=== PATIENT | male | born 1990 | race Asian ===

== ENCOUNTER 2021-12-06 00:15 | Inpatient (IN) ==
[2021-12-06] MEDS ORDERED: GI COCKTAIL ED USE PO ONE (00:27)
[2021-12-06 00:48] LABS: Appearance Urine Clear (Clear); Bilirubin Urine Negative (Negative); Blood Urine Negative (Negative); Color Urine Yellow; Glucose Urine UA Negative (Negative); Ketones Urine Negative (Negative); Leukocyte Esterase Urine Negative (Negative); Nitrite Urine Negative (Negative); Protein Urine Negative (Negative); Specific Gravity Urine 1.014 (1.000-1.030); Urobilinogen Urine Negative (Negative)
--- NOTE | 2021-12-06 00:51 | Emergency Department Note ---
History of Present Illness General Chief complaint: Abdominal Pain Stated complaint: SEVERE STOMACH PAIN LASTING 9HRS Time Seen by Provider: 12/06/21 00:20 History of Present Illness Maximum Pain Intensity: 5 This 31-year-old healthy male who was been underneath more stress lately presen ts to the ER complaining of epigastric discomfort today Location: Epigastric Quality: Discomfort Severity: Moderate Duration: Today Timing: Today Context: Patient was concerned and came in Modifying factors: better with rest; worse with palpation Patient denies chest pain, dyspnea, fevers, vomiting, diarrhea, flank pain, urinary symptoms. No history of similar symptoms in the past. He has been underneath more stress lately. Home Medications Medication Instructions Recorded Confirmed Type lactobacillus combination no.4 3 0 mmu cells PO DAILY 12/06/21 12/06/21 History billion cell capsule (Probiotic) Allergies Allergy/AdvReac Type Severity Reaction Status Date / Time No Known Allergies Allergy Unverified 12/06/21 02:32 Past Med/Surg History Medical History No acute medical problems Surgical History No pertinent past surgical history Social History Smoking Status: Never smoker Preferred Language: Finnish Feels Safe at Home: Yes Review of Systems A total of 10 systems reviewed and were otherwise negative Physical Exam Vital Signs Vital Signs - 24 hr 12/06/21 00:18 12/06/21 00:33 12/06/21 02:07 Temperature 37.0 C Temperature Source Temporal Artery Scan Pulse Rate 82 Pulse Rate [Right Finger] 73 Respiratory Rate 18 18 Respiratory Depth Normal Blood Pressure 137/85 Blood Pressure [Right Arm] 126/76 Blood Pressure Mean 102 Blood Pressure Mean [Right Arm] 92 Blood Pressure Position [Right Arm] Sitting Pulse Oximetry 96 98 98 Oxygen Delivery Method Room Air Room Air Room Air Sepsis Recent Fever Within 48 Hours No Sepsis New/Unexplained Change in Mental Status N/A Sepsis Action Taken by Nursing No Action Required VITALS: Vitals are noted on the nurse's note and reviewed by myself. Vital signs stable. GENERAL: Pleasant gentleman ambulating without difficulty, in no acute distress, nondiaphoretic, well-developed well-nourished. SKIN: The skin was without rashes, erythema, edema, or bruising. There is no tenting of the skin. Capillary reflex less than 2 seconds. HEAD: Normocephalic atraumatic. EARS: External auditory canals clear, EYES: Pupils equal round and reactive to light and accommodation. Conjunctivae without injection, sclerae without icterus. Extraocular movements intact. NOSE: Patent, turbinates without inflammation or discharge. MOUTH: Mucous membranes moist. Pharynx without erythema or exudate. Uvula midline. Airway patent. Tongue does not deviate. NECK: Supple without nuchal rigidity. No lymphadenopathy. No thyromegaly. Cervical spine is nontender. No JVD. HEART: Regular rate and rhythm without murmurs gallops or rubs. LUNGS: Clear to auscultation bilaterally without wheezes, rales or rhonchi. No retractions or accessory muscle use. ABDOMEN: Positive bowel sounds x 4. Normal tympanic percussion. Soft, nontender, without masses or organomegaly. Wadsworth sign negative. No guarding or rebound tenderness. No CVA tenderness MUSCULOSKELETAL: No muscle atrophy, erythema, or edema noted. NEURO: Patient was alert and oriented to person place and time. Normal sensation to light and sharp touch. No focal neurological deficits. Course Administered Medications Discontinued Medications Al Hydrox/Mg Hydrox/Simethicone (Gi Cocktail Ed Use) 1 dose PO ONE ONE Stop: 12/06/21 00:28 Last Admin: 12/06/21 00:39 Dose: 1 dose Documented by: [id number] Acetaminophen (Ofirmev) 1,000 mg in 100 mls @ 400 mls/hr IV NOW STA Stop: 12/06/21 01:48 Last Infusion: 12/06/21 02:35 Dose: 0 mls/hr Documented by: [id number] Admin: 12/06/21 01:52 Dose: 400 mls/hr Documented by: [id number] Sodium Chloride (Nss 1000ml) 1,000 mls @ 999 mls/hr IV .Q1H1M ONE Stop: 12/06/21 02:34 Last Infusion: 12/06/21 02:56 Dose: 0 mls/hr Documented by: [id number] Admin: 12/06/21 01:52 Dose: 999 mls/hr Documented by: [id number] Ioversol (Optiray 320 100ml) 100 ml IV ONCE ONE Stop: 12/06/21 02:10 Last Admin: 12/06/21 02:09 Dose: 93 ml Documented by: [id number] Medical Decision Making Medical Records Attestation: I reviewed the patient's medical records. Home Medications Current Medication List: was personally reviewed by me Laboratory Data Attestation: I reviewed the patient's lab results. Result diagrams: 12/06/21 00:35 12/06/21 00:35 Lab Results 12/06/21 12/06/21 12/06/21 Range/Units 00:35 00:35 00:35 WBC 14.25 H (4.8-10.8) K/uL RBC 5.23 (4.7-6.1) M/uL Hgb 16.0 (14.0-18.0) g/dL Hct 44.9 (42-52) % MCV 85.9 (80-100) fL MCH 30.6 (25-34) pg MCHC 35.6 (32-36) g/dL RDW Std Deviation 39.4 (36.4-46.3) fL RDW Coeff of Soniya 12.5 (11.5-14.5) % Plt Count 207 (130-400) K/uL MPV 9.6 (7.4-10.4) fL Immature Gran % (Auto) 0.2 % Neut % (Auto) 79.4 % Lymph % (Auto) 14.9 % Barren % (Auto) 5.0 % Eos % (Auto) 0.4 % Baso % (Auto) 0.1 % Neut # (Auto) 11.31 H (1.4-6.5) K/uL Lymph # (Auto) 2.12 (1.2-3.4) K/uL Barren # (Auto) 0.71 H (0.11-0.59) K/uL Eos # (Auto) 0.06 (0-0.5) K/uL Baso # (Auto) 0.02 (0-0.2) K/uL Immature Gran # (Auto) 0.03 H (0.00-0.02) K/uL Sodium 136 (136-145) mmol/L Potassium 3.7 (3.5-5.1) mmol/L Chloride 98 (98-107) mmol/L Carbon Dioxide 30 (21-32) mmol/L Anion Gap 8 (3-11) BUN 17 (6-23) mg/dl Creatinine 1.25 (0.6-1.4) mg/dl Est Cr Clr Drug Dosing 95.0 ml/min Est GFR ( Amer) 87.1 ml/min Est GFR (Non-Af Amer) 75.2 ml/min BUN/Creatinine Ratio 13.6 (10-20) Glucose 123 H (70-99(Fasting)) mg/dl Calcium 9.9 (8.5-10.1) mg/dl Total Bilirubin 0.8 (0.2-1.0) mg/dl AST 16 (13-39) U/L ALT 31 (7-52) U/L Alkaline Phosphatase 59 (34-104) U/L Total Protein 8.3 (6.0-8.3) gm/dl Albumin 5.0 (3.4-5.0) gm/dl Globulin 3.3 (2.5-4.0) gm/dl Albumin/Globulin Ratio 1.5 (0.9-2) Triglycerides 72 (0-150) mg/dl Cholesterol 156 (0-200) mg/dl LDL Cholesterol, Calc 89 mg/dl VLDL Cholesterol, Calc 14 (0-30) mg/dl HDL Cholesterol 53 mg/dl Cholesterol/HDL Ratio 2.9 (0-5) Lipase 287 H (11-82) U/L Urine Color Urine Appearance (Clear) Urine pH (4.5-7.5) Ur Specific [place] (1.000-1.030) Urine Protein (Negative) Urine Glucose (UA) (Negative) Urine Ketones (Negative) Urine Blood (Negative) Urine Nitrite (Negative) Urine Bilirubin (Negative) Urine Urobilinogen (Negative) Ur Leukocyte Esterase (Negative) 12/06/21 Range/Units 00:37 WBC (4.8-10.8) K/uL RBC (4.7-6.1) M/uL Hgb (14.0-18.0) g/dL Hct (42-52) % MCV (80-100) fL MCH (25-34) pg MCHC (32-36) g/dL RDW Std Deviation (36.4-46.3) fL RDW Coeff of Soniya (11.5-14.5) % Plt Count (130-400) K/uL MPV (7.4-10.4) fL Immature Gran % (Auto) % Neut % (Auto) % Lymph % (Auto) % Barren % (Auto) % Eos % (Auto) % Baso % (Auto) % Neut # (Auto) (1.4-6.5) K/uL Lymph # (Auto) (1.2-3.4) K/uL Barren # (Auto) (0.11-0.59) K/uL Eos # (Auto) (0-0.5) K/uL Baso # (Auto) (0-0.2) K/uL Immature Gran # (Auto) (0.00-0.02) K/uL Sodium (136-145) mmol/L Potassium (3.5-5.1) mmol/L Chloride (98-107) mmol/L Carbon Dioxide (21-32) mmol/L Anion Gap (3-11) BUN (6-23) mg/dl Creatinine (0.6-1.4) mg/dl Est Cr Clr Drug Dosing ml/min Est GFR ( Amer) ml/min Est GFR (Non-Af Amer) ml/min BUN/Creatinine Ratio (10-20) Glucose (70-99(Fasting)) mg/dl Calcium (8.5-10.1) mg/dl Total Bilirubin (0.2-1.0) mg/dl AST (13-39) U/L ALT (7-52) U/L Alkaline Phosphatase (34-104) U/L Total Protein (6.0-8.3) gm/dl Albumin (3.4-5.0) gm/dl Globulin (2.5-4.0) gm/dl Albumin/Globulin Ratio (0.9-2) Triglycerides (0-150) mg/dl Cholesterol (0-200) mg/dl LDL Cholesterol, Calc mg/dl VLDL Cholesterol, Calc (0-30) mg/dl HDL Cholesterol mg/dl Cholesterol/HDL Ratio (0-5) Lipase (11-82) U/L Urine Color Yellow Urine Appearance Clear (Clear) Urine pH 6.0 (4.5-7.5) Ur Specific [place] 1.014 (1.000-1.030) Urine Protein Negative (Negative) Urine Glucose (UA) Negative (Negative) Urine Ketones Negative (Negative) Urine Blood Negative (Negative) Urine Nitrite Negative (Negative) Urine Bilirubin Negative (Negative) Urine Urobilinogen Negative (Negative) Ur Leukocyte Esterase Negative (Negative) Imaging Data Attestation: I personally reviewed and interpreted this imaging study as follows: MDM Narrative Prior records/ancillary studies reviewed. Triage Nursing notes reviewed. Additional history obtained from family. The patient's history was concerning for abdominal pain. Differential diagnosis: Etiologies such as appendicitis, diverticulitis, PUD, biliary pathology, UTI, pancreatitis, obstruction, mesenteric ischemia, aortic pathology, infections, inflammatory bowel disease, renal colic, as well as others were entertained. Physical examination findings: As above. ER treatment provided: An order was placed for continuous cardiac monitoring. The monitor shows a rate of 60-100 with a sinus rhythm. GI cocktail, Pepcid, Tylenol, IV fluids On reassessment the patient felt better. Diagnostics interpreted by me: The labs revealed Leukocytosis, negative urine Elevated lipase Imaging studies: US RUQ: The liver is mildly echogenic suggesting fatty infiltration. The liver is a large is 19.2 cm. No focal liver lesion is seen. The portal vein is patent with normal hepatopetal flow. The gallbladder is partially distended with no visible stones, wall thickening, or surrounding fluid. The common bile duct is nondilated measuring 4 mm. The right kidney appears within normal limits. No hydronephrosis. Radiologist: Christiano Taylor MD Preliminary Findings Only See Final Report For Complete Findings CT ABDOMEN & PELVIS With Contrast: Comparison to ultrasound from December 06, 2021. There is a trace amount of edema in the left upper quadrant most closely associated with the tail of the pancreas is a mild pancreatitis. No pseudocyst or abscess is seen. No pancreatic duct dilation is identified. There is fatty infiltration of the liver. The liver is mildly enlarged measuring 20 cm craniocaudad. No focal liver lesion is seen. The gallbladder is only partially distended with an unremarkable appearance. No biliary duct dilation is seen. The spleen, adrenal glands, and kidneys appear within normal limits. The urinary bladder is partially distended and unremarkable. The appendix is normal. Bowel loops are nondilated. No acute inflammatory changes are seen involving the bowel. Skeletal structures appear within normal limits. Radiologist: Christiano Taylor MD Exam and history seem consistent with pancreatitis. Medicine was consulted. He will be evaluated for admission. Normal cholesterol panel. Patient does not drink alcohol. Patient will be evaluated for admission. By the evaluation outlined above emergent etiologies such as appendicitis, diverticulitis, PUD, biliary pathology, UTI, obstruction, mesenteric ischemia, aortic pathology, infections, inflammatory bowel disease, renal colic, as well as others were deemed relatively unlikely. The pt informed about the findings as listed above. All questions were answered and pleased with the treatment. The chart was completed utilizing [employer] Speech voice recognition software. Grammatical errors, random word insertions, pronoun errors, and incomplete sentences are an occassional consequence of this system due to software limitations, ambient noise, and hardware issues. Any formal questions or concerns about the content, text, or information contained within the body of this dictation should be directly addressed to the physician chiropractor assistant for clarification. Impression & Plan Pancreatitis Discharge Plan Visit Data Chief Complaint: Abdominal Pain Stated Complaint: SEVERE STOMACH PAIN LASTING 9HRS ED Provider: Angelique Salmon ED Midlevel Provider: Naa Quintana Discharge Problem: Pancreatitis Patient Disposition: Admitted As Inpatient Condition: Good Forms Stand Alone Forms: [employer] Prescriptions Prescriptions: No Action Probiotic 3 billion cell Capsule 0 mmu cells PO DAILY RF: 0 Referrals Referrals: PCP,NO [Primary Care Provider] - Discharge Problem: Pancreatitis Qualifiers: Chronicity: acute Pancreatitis type: unspecified pancreatitis type Acute pancreatitis complication: unspecified Qualified Code(s): K85.90 - Acute pancreatitis without necrosis or infection, unspecified
[2021-12-06 00:52] LABS: Basophils # (auto) 0.02 K/uL (0-0.2); Basophils % (auto) 0.1 %; Eosinophils # (auto) 0.06 K/uL (0-0.5); Eosinophils % (auto) 0.4 %; Hematocrit (blood only) 44.9 % (42-52); Immature Granulocytes # (auto) 0.03 K/uL (0.00-0.02); Immature Granulocytes % (auto) 0.2 %; Lymphocytes # (auto) 2.12 K/uL (1.2-3.4); Lymphocytes % (auto) 14.9 %; Mean Corpuscular Hemoglobin 30.6 pg (25-34); Mean Corpuscular Hgb Conc 35.6 g/dL (32-36); Mean Corpuscular Volume 85.9 fL (80-100); Mean Platelet Volume 9.6 fL (7.4-10.4); Monocytes # (auto) 0.71 K/uL (0.11-0.59); Neutrophils # (auto) 11.31 K/uL (1.4-6.5); Neutrophils % (auto) 79.4 %; Platelet Count 207 K/uL (130-400); RDW Coefficient of Variation 12.5 % (11.5-14.5); RDW Standard Deviation 39.4 fL (36.4-46.3); Red Blood Count 5.23 M/uL (4.7-6.1); White Blood Count 14.25 K/uL (4.8-10.8)
[2021-12-06 01:27] LABS: Albumin Globulin Ratio 1.5 (0.9-2); BUN Creatinine Ratio 13.6 (10-20); Bilirubin,Total 0.8 mg/dl (0.2-1.0); Calcium 9.9 mg/dl (8.5-10.1); Est GFR (African American) 87.1 ml/min; Est GFR (Non-African American) 75.2 ml/min; Globulin 3.3 gm/dl (2.5-4.0); Potassium 3.7 mmol/L (3.5-5.1); Total Protein 8.3 gm/dl (6.0-8.3)
[2021-12-06] MEDS ORDERED: ACETAMINOPHEN 1,000 MG/100 ML VIAL IV STA (01:34)
[2021-12-06] MEDS ORDERED: SODIUM CHLORIDE 0.9% 1000ML 1,000 ML IV ONE (01:34)
[2021-12-06 01:44] LABS: Chol HDL Ratio 2.9 (0-5)
[2021-12-06] MEDS ORDERED: OPTIRAY 320 100ml IV ONE (02:09)
[2021-12-06] MEDS ORDERED: MoRPHine SULFATE 4 MG/ML 1 ML CARP\\VIAL IV STA (04:23)
[2021-12-06] MEDS ORDERED: HYDROmorphone INJ 0.5 MG/0.5 ML SYR IV STA (04:50)
[2021-12-06] MEDS ORDERED: HYDROmorphone INJ 0.5 MG/0.5 ML SYR IV PRN (05:44)
[2021-12-06] MEDS ORDERED: ONDANSETRON INJ 2 MG/ML 2 ML VIAL IV PRN (05:44)
[2021-12-06] MEDS: FAMOTIDINE 20 MG in SYRINGE 3 ML IV SCH ×3 (05:54→20:03)
[2021-12-06] MEDS: LACTATED RINGER'S 1,000 ML IV SCH ×4 (05:56→20:07)
--- NOTE | 2021-12-06 06:27 | Ultrasound Report ---
ULTRASOUND RIGHT UPPER QUADRANT ABDOMEN CLINICAL HISTORY: Epigastric abdominal pain. COMPARISON STUDY: No priors. TECHNIQUE: Real-time, grayscale, and color flow sonography of the right upper quadrant of the abdomen was performed. Images are reviewed in the transverse and longitudinal planes. FINDINGS: Liver: The liver is mildly enlarged and demonstrates heterogeneously increased echotexture consistent with hepatic steatosis. There is no intrahepatic biliary ductal dilatation. The main portal vein is patent. Gallbladder: The gallbladder is normal in appearance. No gallstones are identified. There is no gallb ladder wall thickening or pericholecystic fluid. A sonographic Wadsworth's sign is reportedly absent. Th e common bile duct measures up to 0.4 cm in diameter. Pancreas: Visualized portions of the pancreatic head and body are normal in appearance. The splenic v ein is patent. Right kidney: Survey images of the right kidney demonstrate normal size and echotexture. There is no hydronephrosis. Ascites: None. IMPRESSION: 1. No acute sonographic abnormality is seen in the right upper quadrant. No gallstones are identified . 2. Hepatomegaly and hepatic steatosis. ACT 112: Negative or not required by law. Electronically signed by: Reagan Amezcua M.D. 12/06/2021 6:26 AM
--- NOTE | 2021-12-06 07:34 | CT Scan Report ---
CT SCAN OF THE ABDOMEN AND PELVIS WITH IV CONTRAST CLINICAL HISTORY: Epigastric abdominal pain. Elevated lipase. COMPARISON STUDY: Abdominal ultrasound dated 12/06/2021. TECHNIQUE: Following the IV administration of 93 cc of Optiray 320, CT scan of the abdomen and pelvi s is performed from the lung bases to the proximal femora. Images are reviewed in the axial, sagittal , and coronal planes. IV contrast was administered without complication. A dose lowering technique wa s utilized adhering to the principles of ALARA. CT DOSE: 477.86 mGy.cm FINDINGS: Lung bases: The heart is normal in size and without pericardial effusion. The lung bases are clear no ting dependent atelectasis. Liver: The contrast-enhanced liver is enlarged, measuring 19.7 cm in length. The liver demonstrates d iffusely diminished attenuation consistent with hepatic steatosis. Fatty sparing is seen adjacent to gallbladder fossa. There is no intrahepatic biliary ductal dilatation. The hepatic veins and portal v eins are patent. Gallbladder: Partially contracted and normal as visualized. Spleen: Normal in size and attenuation. Pancreas: There is inflammation and fluid around the distal pancreatic body and tail typical for acut e pancreatitis. The gland enhances throughout. The duct is normal in caliber. No organized peripancre atic fluid collection is identified. The splenic vein is patent. Adrenal glands: Unremarkable. Kidneys: The contrast enhanced kidneys are normal in size and without hydronephrosis. The kidneys enh ance symmetrically. Abdominal vasculature: The abdominal aorta is normal in course and caliber. Bowel: There is no bowel obstruction. Fecal retention is noted in the right colon. The appendix is w ell-visualized and normal. Peritoneum: There is no intraperitoneal free air or abdominal ascites. Lymphadenopathy: None. Pelvic viscera: The bladder, prostate, and seminal vesicles are normal as visualized. Skeletal structures: No lytic or blastic lesions are seen. IMPRESSION: 1. Findings are consistent with acute pancreatitis involving the distal pancreatic body and tail. 2. The pancreas enhances throughout and there is no organized peripancreatic fluid collection. 3. Hepatomegaly and hepatic steatosis. 4. Additional findings as above. ACT 112: Negative or not required by law. Electronically signed by: Reagan Amezcua M.D. 12/06/2021 7:33 AM
--- NOTE | 2021-12-06 08:25 | History and Physical Report ---
DATE OF ADMISSION: 12/06/2021. CHIEF COMPLAINT: Abdominal pain. HISTORY OF PRESENT ILLNESS: This is a 31-year-old male with no significant past medical history who presents with epigastric abdominal tenderness. Pain started around 3:00 p.m. yesterday with 5/10 severity and some nausea. No fever, normal bowel and bladder movements. No other complaints. Hemodynamically stable, resting comfortably. After pain medication, pain is improving. Denies any headache. No blurred visions, no earache, no runny nose, no sore throat, no cough, no chest pain or shortness of breath. No swelling in the legs, otherwise active. Denies any alcohol use. ALLERGIES: No known drug allergies. PAST MEDICAL HISTORY: None. PAST SURGICAL HISTORY: None. MEDICATIONS: None. FAMILY HISTORY: Mother has diabetes. SOCIAL HISTORY: No smoking, no alcohol. REVIEW OF SYSTEMS: Per HPI. Rest of the review of systems is negative. PHYSICAL EXAMINATION: GENERAL: The patient is of moderate build, not in acute distress. VITAL SIGNS: Temperature 37, pulse 62, respiratory rate 16, blood pressure 142/95, oxygen 96% on room air. HEENT: Pupils equal, round and reactive to light. Oral mucosa moist. NECK: No JVD, no neck masses. CARDIOVASCULAR: S1 and S2 heard. Regular rate and rhythm. No murmur, no gallop. RESPIRATORY SYSTEM: Normal AP diameter. No accessory muscle use. No wheezing, no crackles. ABDOMEN: Soft, bowel sounds present. Epigastric tenderness present. No guarding, no rigidity, no distention. CENTRAL NERVOUS SYSTEM: Cranial nerves II-XII grossly intact, nonfocal. EXTREMITIES: No edema, no erythema. LABORATORY DATA: WBC 14.2, hemoglobin 16, hematocrit 44.9, platelets 207. Sodium 136, potassium 3.7, chloride 98, bicarbonate 30, BUN 17, creatinine 1.25, serum glucose 123, calcium 9.9, total bilirubin 0.8, AST 16, ALT 31, alkaline phosphatase 59, triglycerides 72, cholesterol 156, LDL 89, HDL 53. Lipase 287. Urinalysis negative. SARS-CoV-2 rapid test negative. IMAGING DATA: CT of abdomen and pelvis preliminary report shows trace amount of edema in the left upper quadrant at tail of the pancreas with mild pancreatitis. No pseudocyst or abscess is seen. No pancreatic ductal dilatation identified. Fatty infiltration of the liver. Gallbladder is only partially distended with an unremarkable appearance. No biliary ductal dilatation is seen. Gallbladder ultrasound, preliminary report, liver is mildly echogenic suggesting fatty infiltration, liver enlarged at 20cm. No focal liver lesion is seen. The portal vein is patent with normal hepatoportal flow. The gallbladder is partially distended with no visible stones. Wall thickening or surrounding fluid. Common bile duct is nondilated measuring 4 mm, right kidney appears within normal limits. No hydronephrosis. ASSESSMENT AND PLAN: This 31-year-old male presents with epigastric tenderness and found to have pancreatitis. 1. Pancreatitis abdominal pain and epigastric tenderness. CT scan is showing mild pancreatitis. Lipase was slightly elevated at 287. Etiology unclear. No gallstones. No alcoholism. We will follow the final reports of the imaging studies. We will keep him n.p.o. Aggressive IV fluids LR at 200 mL per hour, IV Dilaudid p.r.n., IV Pepcid and consult gastrointestinal in the a.m. for further recommendations. Repeat labs in the a.m. 2. Deep venous thrombosis prophylaxis: Sequential compression devices. DISPOSITION: Admit to medical floor. Expect to discharge home and follow with family doctor. Job ID: [id number] [facility]
[2021-12-06] MEDS: ACETAMINOPHEN 325 MG TAB PO PRN (08:44)
--- NOTE | 2021-12-06 10:52 | Gastrointestinal Consultation ---
Date of Consultation December 06, 2021 Assessment & Plan (1) Pancreatitis: Patient is a 31 years old male who presented with epigastric abdominal pain, noted to have elevated lipase and evidence of pancreatitis mostly in the distal body and tail segments. His LFTs are normal. He has his gallbladder in place but no evidence of gallstones on CT scan. He denies tobacco, alcohol or illicit drug use. He does have evidence of fatty liver and hepatomegaly on CT scan. No family history is of autoimmune pancreatitis though mother has diabetes. - Continue IVF w LR @ 200ml/hr - CL diet - Obtain fasting lipid panel - Symptomatic management - Outpt EUS in 4-6 week's time Supervising Physician Co-Signing Physician Notes I have personally seen and examined the patient with GLENIS Contreras on 12/06/21. Her note reflects my exam and findings. I agree with her impression and plan. Unclear etiology of pancreatitis. Will most likely need out patient EUS. Stevie Sung M.D. History of Present Illness Reason for Consultation: Pancreatitis Requesting Physician: Dr. Bart Lopez Attending Physician: Dr. Stevie Sung History of Present Illness Pt is a 31 yo male who presented yesterday w c/o epigastric abd pain. No associated fever, chills, n/v, jaundice. Normal BM per his report. On eval, noted he's afebrile but has leukocytosis. LFTs normal, lipase in 200s. Abd imaging showed signs of pancreatitis in distal body and tail areas. Gallbladder in place, no stones noted. He does have hepatomegaly and hepatic steatosis. 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 No new meds, takes probiotics. And Swedish herbal medicine after his abd pain started. Denies family hx of autoimmune disorders. Mother has diabetes. 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: No Beliefs That Will Affect Care: None Current Living Situation: Spouse Current Living Situation Comment: lives in townhouse with and child Other Information That Helps Us Care for You: No Feels Safe at Home: Yes Safety Concerns: Feels Safe At This Time Assistive Devices: None Review of Systems Review of Systems: All systems reviewed & are unremarkable except as noted in HPI & below Physical Exam Constitutional: WD/WN, vitals as above well groomed, cooperative and comfortable Eyes: PERRL, conjunctivae normal, anicteric sclerae ENMT: external ear and nose normal, oropharynx normal Respiratory: normal respiratory effort, lungs clear to auscultation Cardiovascular: RRR, no murmur, no edema Gastrointestinal (Abdomen): epigastric TTP, BS hypoactive,soft Skin: no rashes, warm and dry no jaundice Psychiatric: A+Ox3, euthymic affect Lymphatic: no lymphedema Results & Data ([facility]) Vital Signs (Past 12 Hours) Vital Signs Temp Pulse Pulse Pulse Resp BP BP 12/06/21 07:31 36.9 C 77 18 116/82 12/06/21 06:07 37.2 C 89 15 120/73 12/06/21 06:02 37.2 C 89 15 120/73 12/06/21 05:25 37.2 C 89 15 120/73 12/06/21 05:18 67 16 142/95 H 12/06/21 04:00 62 16 12/06/21 02:07 73 18 12/06/21 00:33 12/06/21 00:18 37.0 C 82 18 137/85 BP Pulse Ox 12/06/21 07:31 96 12/06/21 06:07 97 12/06/21 06:02 97 12/06/21 05:25 97 12/06/21 05:18 97 12/06/21 04:00 142/95 H 96 12/06/21 02:07 126/76 98 12/06/21 00:33 98 12/06/21 00:18 96 (1) Pancreatitis Acute pancreatitis complication: unspecified Chronicity: acute Pancreatitis type: unspecified pancreatitis type Qualified Code(s): K85.90 - Acute pancreatitis without necrosis or infection, unspecified
--- NOTE | 2021-12-06 14:02 | Hospitalist Progress Note ---
Date of Service December 06, 2021 Patient admitted this morning for abdominal pain found to have acute pancreatitis on imaging and with lipase 287. Fasting lipid panel ordered for tomorrow. Will need EUS in 4-6 weeks. Continue clear liquid diet, LR at 200cc/hr, pain control Remaining assessment and plan per H&P Assessment & Plan Admission and Anticipated Discharge Date Admission Date: December 06, 2021 Results & Data Results & Data ([facility]) Vital Signs (Past 12 Hours) Vital Signs Temp Pulse Pulse Pulse Resp BP BP 12/06/21 07:31 36.9 C 77 18 116/82 12/06/21 06:07 37.2 C 89 15 120/73 12/06/21 06:02 37.2 C 89 15 120/73 12/06/21 05:25 37.2 C 89 15 120/73 12/06/21 05:18 67 16 142/95 H 12/06/21 04:00 62 16 12/06/21 02:07 73 18 BP Pulse Ox 12/06/21 07:31 96 12/06/21 06:07 97 12/06/21 06:02 97 12/06/21 05:25 97 12/06/21 05:18 97 12/06/21 04:00 142/95 H 96 12/06/21 02:07 126/76 98
[2021-12-06] MEDS ORDERED: POLYETHYLENE (MIRALAX) 17 GM PACK PO PRN (17:47)
[2021-12-07] MEDS: LACTATED RINGER'S 1,000 ML IV SCH ×3 (00:07→09:52)
[2021-12-07 06:41] LABS: Basophils # (auto) 0.02 K/uL (0-0.2); Basophils % (auto) 0.1 %; Eosinophils # (auto) 0.02 K/uL (0-0.5); Eosinophils % (auto) 0.1 %; Hematocrit (blood only) 41.7 % (42-52); Hemoglobin 14.3 g/dL (14.0-18.0); Immature Granulocytes # (auto) 0.04 K/uL (0.00-0.02); Immature Granulocytes % (auto) 0.3 %; Lymphocytes # (auto) 1.41 K/uL (1.2-3.4); Lymphocytes % (auto) 10.1 %; Mean Corpuscular Hemoglobin 29.8 pg (25-34); Mean Corpuscular Hgb Conc 34.3 g/dL (32-36); Mean Corpuscular Volume 86.9 fL (80-100); Mean Platelet Volume 9.8 fL (7.4-10.4); Monocytes # (auto) 1.14 K/uL (0.11-0.59); Monocytes % (auto) 8.2 %; Neutrophils # (auto) 11.34 K/uL (1.4-6.5); Neutrophils % (auto) 81.2 %; Platelet Count 158 K/uL (130-400); RDW Coefficient of Variation 12.4 % (11.5-14.5); RDW Standard Deviation 39.6 fL (36.4-46.3); White Blood Count 13.97 K/uL (4.8-10.8)
[2021-12-07 06:56] LABS: BUN Creatinine Ratio 8.1 (10-20); Calcium 9.3 mg/dl (8.5-10.1); Chol HDL Ratio 2.3 (0-5); Est GFR (African American) 100.6 ml/min; Est GFR (Non-African American) 86.8 ml/min; Magnesium 1.7 mg/dl (1.7-2.4); Potassium 3.8 mmol/L (3.5-5.1)
[2021-12-07] MEDS: FAMOTIDINE 20 MG in SYRINGE 3 ML IV SCH ×2 (08:18→20:56)
[2021-12-07] MEDS ORDERED: oxyCODONE HCL IR 5 MG TAB (IMMEDIATE RELEASE) PO PRN (08:59)
--- NOTE | 2021-12-07 12:15 | Gastroenterology Progress Note ---
Date of Service December 07, 2021 Assessment & Plan (1) Pancreatitis: Plan: Pancreatitis: Patient is a 31 years old male who presented with epigastric abdominal pain, noted to have elevated lipase and evidence of pancreatitis mostly in the distal body and tail segments. His LFTs are normal. He has his gallbladder in place but no evidence of gallstones on CT scan. He denies tobacco, alcohol or illicit drug use. He does have evidence of fatty liver and hepatomegaly on CT scan. No family history is of autoimmune pancreatitis though mother has DM -Advance diet to low-fat -Symptomatic management - GI sign off, recall as needed -Outpt EUS in 4-6 week's time Admission and Anticipated Discharge Date Admission Date: December 06, 2021 Supervising Physician Co-Signing Physician Notes I have personally seen and examined the patient with GLENIS Contreras. Her note reflects my exam and findings. I agree with her impression and plan. No source for pancreatitis. Out patient EUS. Stevie Sung M.D. Subjective Pt is 31-year-old pleasant male hospitalized on 12/05 for acute epigastric pain and was dx with acute pancreatitis via imagine. He is currently now having 2/10 epigastric pain with hunger, 1/10 LLQ pain likely due to constipation. Lipase has went down to 108 from previous in the 200s. Denies N/V, chills, jandice, no bowel movement in two days. Denies alcohol use, ilicit drugs, new meds, high-fat diet. Spoke with his family and did not have any update to [facility]. Ab Imaging did show hepaomegaly, hepatic steatosis, panceatitis in the distal body and tail areas. Review of Systems Review of Systems: All systems reviewed & are unremarkable except as noted in HPI & below Physical Exam Constitutional: WD/WN, vitals as above well groomed, cooperative and comfortable Eyes: PERRL, conjunctivae normal, anicteric sclerae ENMT: external ear and nose normal, oropharynx normal Respiratory: normal respiratory effort, lungs clear to auscultation Cardiovascular: RRR, no murmur, no edema Gastrointestinal (Abdomen): LLQ TTP, BS normoactive,soft Skin: no rashes, warm and dry no jaundice Psychiatric: A+Ox3, euthymic affect Lymphatic: no lymphedema Results & Data ([facility]) Vital Signs (Past 12 Hours) Vital Signs Temp Pulse Resp BP Pulse Ox 12/07/21 07:24 37.4 C 87 18 112/71 96 Laboratory Results Labs and Dx exams reviewed. (1) Pancreatitis Acute pancreatitis complication: unspecified Chronicity: acute Pancreatitis type: unspecified pancreatitis type Qualified Code(s): K85.90 - Acute pancreatitis without necrosis or infection, unspecified
[2021-12-07] MEDS ORDERED: PIPERACILL/TAZOBAC CONSULT ACTIVE PRN (16:02)
--- NOTE | 2021-12-07 16:11 | Hospitalist Progress Note ---
Date of Service December 07, 2021 Assessment & Plan Plan: Acute pancreatitis -so far no clear etiology -will need EUS in 4-6 weeks with GI OP -tolerated clear liquids which was later advanced to fulls. Will continue fulls until discharge -Will ask for RD education so patient understands how to advance his diet slowly Fever -New this afternoon -At risk for developing pancreatic necrosis, WBC remains elevated. Will start zosyn. Obtain blood cultures Hold off on discharge for now Admission and Anticipated Discharge Date Admission Date: December 06, 2021 Subjective This morning--pain is improved, tolerated clear liquid diet then later tolerated full liquid diet Later in afternoon, spiked a fever to 38.3. Still doing well Physical Exam Physical Exam: Exam in morning Appears well, laying in bed, no acute distress Respiratory: breathing comfortably on room air, no wheezing/rhonchi/rales Cardiovascular: regular rate and rhythm, no murmurs/rubs/gallops Gastrointestinal (Abdomen): +mild epigastric tenderness, no rebound or guarding Musculoskeletal: No edema Results & Data Results & Data ([facility]) Vital Signs (Past 12 Hours) Vital Signs Temp Pulse Resp BP Pulse Ox 12/07/21 16:03 38.3 C H 12/07/21 16:00 37.9 C H 96 H 18 119/80 97 12/07/21 07:24 37.4 C 87 18 112/71 96 Laboratory Results Short CBC 12/07/21 Range/Units 05:32 WBC 13.97 H (4.8-10.8) K/uL Hgb 14.3 (14.0-18.0) g/dL Hct 41.7 L (42-52) % Plt Count 158 (130-400) K/uL BMP 12/07/21 05:32 Sodium 138 Potassium 3.8 Chloride 101 Carbon Dioxide 30 BUN 9 Creatinine 1.11 Glucose 105 H Calcium 9.3 Medications Administered Current Inpatient Medications Acetaminophen (Acetaminophen 325 Mg Tab) 650 mg PO Q4H PRN PRN Reason: pain/fever Stop: 01/05/22 05:43 Last Admin: 12/06/21 08:44 Dose: 650 mg Documented by: Hydromorphone HCl (Hydromorphone Inj 0.5 Mg/0.5 Ml Syr) 0.5 mg IV Q3H PRN PRN Reason: Pain Stop: 12/20/21 05:43 Famotidine 20 mg/ Syringe 5 mls @ 2.5 mls/min IV BID RHETT Stop: 01/05/22 04:50 Last Admin: 12/07/21 08:18 Dose: 2.5 mls/min Documented by: Piperacillin Sod/Tazobactam (Sod 3.375 gm/ Dextrose) 115 mls @ 28.75 mls/hr IV Q8H [facility]; Protocol Stop: 12/17/21 21:59 Piperacillin Sod/Tazobactam (Sod 3.375 gm/ Dextrose) 115 mls @ 230 mls/hr IV NOW ONE; Protocol Stop: 12/07/21 16:44 Miscellaneous Information (Piperacill/Tazobac Consult Active) 1 ea N/A UD PRN PRN Reason: Consult Stop: 01/06/22 16:01 Ondansetron HCl (Ondansetron Inj 2 Mg/Ml 2 Ml Vial) 4 mg IV Q6H PRN PRN Reason: Nausea Stop: 01/05/22 05:43 Oxycodone HCl (Oxycodone Hcl Ir 5 Mg Tab (Immediate Release)) 5 mg PO Q4 PRN PRN Reason: Pain Stop: 12/21/21 08:58 Polyethylene Glycol (Polyethylene (Miralax) 17 Gm Pack) 17 gm PO DAILY PRN PRN Reason: Constipation Stop: 01/05/22 17:46
[2021-12-07] MEDS ORDERED: PIPERACILLIN/TAZOBACTAM 3.375 GM in DEXTROSE 5% 100 ML IV ONE (16:15)
[2021-12-07] MEDS: PIPERACILLIN/TAZOBACTAM 3.375 GM in DEXTROSE 5% 100 ML IV SCH (20:56)
[2021-12-07] MEDS: ACETAMINOPHEN 325 MG TAB PO PRN (21:02)
[2021-12-08] MEDS: PIPERACILLIN/TAZOBACTAM 3.375 GM in DEXTROSE 5% 100 ML IV SCH ×2 (05:57→13:08)
[2021-12-08] MEDS: FAMOTIDINE 20 MG in SYRINGE 3 ML IV SCH (08:12)
[2021-12-08 08:28] LABS: Basophils # (auto) 0.03 K/uL (0-0.2); Basophils % (auto) 0.3 %; Eosinophils # (auto) 0.19 K/uL (0-0.5); Eosinophils % (auto) 1.6 %; Hematocrit (blood only) 43.1 % (42-52); Hemoglobin 14.9 g/dL (14.0-18.0); Immature Granulocytes # (auto) 0.02 K/uL (0.00-0.02); Immature Granulocytes % (auto) 0.2 %; Lymphocytes # (auto) 1.88 K/uL (1.2-3.4); Mean Corpuscular Hemoglobin 30.2 pg (25-34); Mean Corpuscular Hgb Conc 34.6 g/dL (32-36); Mean Corpuscular Volume 87.4 fL (80-100); Mean Platelet Volume 9.7 fL (7.4-10.4); Monocytes # (auto) 0.87 K/uL (0.11-0.59); Monocytes % (auto) 7.4 %; Neutrophils # (auto) 8.73 K/uL (1.4-6.5); Neutrophils % (auto) 74.5 %; Platelet Count 167 K/uL (130-400); RDW Coefficient of Variation 12.5 % (11.5-14.5); RDW Standard Deviation 40.2 fL (36.4-46.3); Red Blood Count 4.93 M/uL (4.7-6.1); White Blood Count 11.72 K/uL (4.8-10.8)
[2021-12-08 08:48] LABS: Albumin Globulin Ratio 1.2 (0.9-2); Albumin Level 4.1 gm/dl (3.4-5.0); BUN Creatinine Ratio 11.3 (10-20); Bilirubin,Total 0.9 mg/dl (0.2-1.0); Calcium 9.4 mg/dl (8.5-10.1); Creatinine Clr Calc Pharmacy 95.8 ml/min; Est GFR (Non-African American) 75.9 ml/min; Globulin 3.3 gm/dl (2.5-4.0); Potassium 3.7 mmol/L (3.5-5.1); Total Protein 7.4 gm/dl (6.0-8.3)
--- NOTE | 2021-12-08 17:10 | Discharge Summary ---
Date of Service December 08, 2021 Admission HPI Per Admitting Provider This is a 31-year-old male with no significant past medical history who presents with epigastric abdominal tenderness. Pain started around 3:00 p.m. yesterday with 5/10 severity and some nausea. No fever, normal bowel and bladder movements. No other complaints. Hemodynamically stable, resting comfortably. After pain medication, pain is improving. Denies any headache. No blurred visions, no earache, no runny nose, no sore throat, no cough, no chest pain or shortness of breath. No swelling in the legs, otherwise active. Denies any alcohol use. Principal Diagnosis Acute pancreatitis Fever, resolved Discharge Exam appears well. Tolerating low fat diet. No further fever, no abdominal pain Discharge Data Allergies Allergy/AdvReac Type Severity Reaction Status Date / Time No Known Allergies Allergy Unverified 12/06/21 02:32 Consultations 12/06/21 08:00 Consult Gastroenterology Routine Ordered Studies 12/06/21 00:27 US gallbladder Urgent 12/06/21 01:30 CT abd pelvis IV con only Urgent Hospital Course Acute pancreatitis -so far no clear etiology -will need EUS in 4-6 weeks with GI outpatient -patient tolerated a clear liquid diet and was advanced to low fat diet by GI which he is also tolerating -He was instructed that if his abdominal returns, to reduce his diet to clears and call his doctor. -Has not required pain medications while here. Will give a Rx for Tramadol 50mg Q 6PRN (dispense 5 tabs) in case of recurrent pain at home. Patient cautioned to not drive, operate machinery while taking tramadol. Patient also cautioned that tramadol may cause addiction to narcotics. Fever -One episode of fever 12/07. Blood cultures obtained and patient placed on zosyn. Blood cultures negative at 24 hours and patient is feeling well (no further fever, pain, tolerating diet). Fever likely inflammatory in setting of pancreatitis. Low clinical suspicion for bacteremia or pancreas necrosis at this time. -Patient feels comfortable to be discharged home Total Time Total Time Spent Total Time Spent (In Minutes): 35 Discharge Plan Discharge Items Patient Disposition: Home - Self-Care Reason For Visit: ABDOMINAL PAIN Discharge Diagnosis: Acute pancreatitis Condition on Discharge: Good Activity: Resume your previous activity Non-emergency contact: Primary Care Provider and Lip Cutter Call non-emergency contact if: you have any medication questions and you have a fever Follow-up/Referrals: Stevie Sung MD [Physician] - PCP,NO [Primary Care Provider] - Diet: Low Fat Addtl Attending Provider Instructions: If you have abdominal pain while on a low fat diet, then go back on a clear liquid diet and call your doctor If you have fevers/chills, severe worsening pain--> please go to the nearest ER Pending Studies at Discharge: Yes Studies:: Blood cultures negative at 24 hours. Will finalize in 5 days Stand-Alone Forms: My [facility] [employer], Smoking Cessation Medications and DC Order Prescriptions: New tramadol 50 mg tablet 50 mg PO Q6H PRN (Reason: pain) Qty: 5 RF: 0 Continued Probiotic 3 billion cell Capsule 0 mmu cells PO DAILY RF: 0 Discharge Orders: Discharge Order (Routine); Ordered 12/08/21 Ordered By: Bart Lopez Admission Data Admit Date/Time: 12/06/21 04:50 Attending Provider: Bart Lopez Admit Provider: Forrest Granados Primary Care Provider: PCP,NO Other Providers: Dunia Rios Other Interventions: Discharge Summary Assessment (RN) Last Done: 12/08/21 16:58
== END 2021-12-08 18:08 | disposition home or self-care (01) | DRG 440 ==
LOC: ED 00:15 → 3N 04:50